=== PATIENT | female | born 1975 | race Hispanic/Latino ===

== ENCOUNTER 2025-10-10 19:37 | Emergency (ER) | payer SELFPAY ==
[~2025-10-10 19:37] MED LIST: Iopamidol 300 61% 100 ML VIAL FS ONE
[2025-10-10 20:41] LABS: #Basophils Less than 0.03 10x3/uL (0.0-0.2); #Eosinophils Less than 0.03 10x3/uL (0.0-0.5); #Monocytes 0.63 10x3/uL (0.0-1.1); #Neutrophils 7.64 10x3/uL (1.5-8.4); %Basophils 0.2 % (0.0-2.0); %Eosinophils 0.2 % (0.0-6.0); %Lymphocytes 16.0 % (18.0-47.0); %Monocytes 6.3 % (0.0-10.0); %Neutrophils 77.0 % (40.0-75.0); Hematocrit 35.0 % (34.9-44.5); Hemoglobin 12.4 g/dL (12.0-15.5); Mean Corpuscular Hemoglobin 31.9 pg (27.0-33.0); Mean Corpuscular Volume 90.0 fL (81.6-98.3); Platelet Count 358 10x3/uL (150-450); Red Blood Cell (RBC) Count 3.89 10x6/uL (3.90-5.03); White Blood Cell (WBC) Count 9.93 10x3/uL (3.5-10.5)
[2025-10-10 20:54] LABS: Glucose, Urine (Dipstick) >=1000 mg/dL (Negative); Leukocyte 100 (Negative); Protein, Urine (Dipstick) 15 mg/dl (Neg-Trace); Specific Gravity, Urine 1.010 (1.005-1.030)
[2025-10-10 21:04] LABS: Acetaminophen Less than 10 mcg/mL (Less than 10); Bilirubin, Direct 5.8 mg/dL (0.1-0.3); Bilirubin, Total 8.6 mg/dL (0.3-1.2); Salicylate Less than 8.0 mg/dL (Less than 8.0)
[2025-10-10 21:08] LABS: Glucose 523 mg/dL (70-105)
[2025-10-10 21:12] LABS: Troponin I Less than 0.010 ng/mL (< 0.028)
[2025-10-10 21:28] LABS: ALT (SGPT) 199 U/L (Less than 34); AST (SGOT) 264 U/L (11-34); Anion Gap 15 mmol/L (10-20); BUN (Urea Nitrogen) 10 mg/dL (7.0-18.7); Calc. Creatinine Clearance 0 mL/min (70-130); Calcium 10.1 mg/dL (7.8-10.44); Carbon Dioxide 26 mmol/L (22-29); Chloride 93 mmol/L (98-107); Potassium 4.2 mmol/L (3.5-5.1); Sodium 130 mmol/L (136-145)
[2025-10-10 21:29] LABS: Alkaline Phosphatase 1430 U/L (40-110)
[2025-10-10 21:36] LABS: Albumin 2.8 g/dL (3.1-4.5); Bilirubin, Total 8.3 mg/dL (0.3-1.2); Lipase 9156 U/L (8-78)
[2025-10-10 21:47] LABS: Globulin 5.1 g/dL (2.4-3.5)
[2025-10-10 22:00] LABS: Bacteria/HPF 1+ HPF (None Seen); CAUTI Indications for Culture Pelvic or flank pain; RBC/HPF 0-3 HPF (0-3)
[2025-10-10 22:01] LABS: Urine Culture Reflex No No
[2025-10-11 06:18] LABS: Analyzer IN Cardio CS ER
[2025-10-11 06:19] LABS: Actual Bicarbonate (HCO3v) 26.3 mEq/L (22-28); Base Excess 0.7 mEq/L (-2 - +2)
[2025-10-11 06:20] LABS: Calcium, Ionized (venous) 1.22 mmol/L (1.16-1.32); Chloride (VBG) 97 mmol/L (98-106); Hematocrit-VBG 36 % (36.0-47.0); Hemoglobin (Hb) 12.1 g/dL (11.7-16.0); Potassium (VBG) 3.68 mmol/L (3.70-5.30); RapidComm Collect By LAB; Sodium 133 mmol/L (133-146)
[2025-10-11 06:21] LABS: RapidComm User LF
[2025-10-12 07:22] LABS: Puncture Site Other Site
== END 2025-10-11 00:50 | disposition short-term general hospital (02) ==
LOC: CSHERS 19:37
DX: K85.10 Biliary acute pancreatitis without necrosis or infection (principal); K80.20 Calculus of gallbladder without cholecystitis without obstruction; R17 Unspecified jaundice; R94.5 Abnormal results of liver function studies; Z55.6 Problems related to health literacy; Z79.899 Other long term (current) drug therapy
CPT/HCPCS: 36415; 36416; 74177; 76705; 80053; 80307; 81001; 82010; 82247; 82805; 83605; 83690; 84484; 85025; 87040; 93005; 96374; 96375; J1815; J2270; J2543; Q9967